=== PATIENT | male | born 1995 | race Caucasian/White ===

== ENCOUNTER → 2023-03-30 | Outpatient (CLI) | payer BC ==
--- NOTE | 2023-04-12 12:08 | HM ---
HOLTER MONITOR REPORT STUDY PERFORMED: A 48-hour Holter. INDICATIONS: Palpitations. FINDINGS: Underlying rhythm is sinus with an average heart rate of 64 beats per minute. Heart rate varied from 41 beats per minute to 127 beats per minute. Occasional PVCs and rare PACs are noted. CONCLUSIONS: This 48-hour Holter reveals sinus rhythm, sinus tachycardia, sinus bradycardia, PVCs, and PACs. MMADITYAL / LORN: [id number] /
== END | disposition home or self-care (01) ==
LOC: RADECHMAIN 07:35
PROVIDERS: ATTEND Family Medicine
DX: R00.0 Tachycardia, unspecified (principal); R00.1 Bradycardia, unspecified; R00.2 Palpitations
CPT/HCPCS: 93225; 93226